=== PATIENT | female | born 1970 | race Caucasian/White ===

== ENCOUNTER 2021-08-05 18:13 | Outpatient (REF) | payer BC, SELFPAY ==
--- NOTE | 2021-08-05 16:45 | PAPFT_PTH ---
PATIENT: Keeley Castro LOC: [facility]#:[id number] AGE/SX: 50/F ROOM: RE08/05/[address]: Evelyn Trent : 1970 BED: DIS: 08/05/2021 SPEC #: [id number] RECD: 08/06/21 13:03 STATUS: ARELY REQ #: [id number] NATHALIE: 08/05/21 16:[address]: Evelyn Trent DEPT: [facility] Cytology RECD BY: Carmita Giatan ENTERED: 08/06/21 13:04 SP TYPE: PAPFT OTHR DR: Renata Moncada V Tissues: 1 - CX/ENDOCX FOR PAP SMEARS Procedures: PAP THIN PREP/UVM Screening HPV DNA PROBE Comments: [id number]
[2021-08-05 21:44] LABS: ALT 24 U/L (14-59); AST 21 U/L (15-37); Albumin 4.1 g/dL (3.4-5.0); Alkaline Phosphatase 47 U/L (46-116); Anion Gap 10.6 mmol/L (3-11); BUN 17 mg/dL (7-18); Bilirubin, Total 0.6 mg/dL (0.2-1.0); CO2 25.4 mmol/L (21.0-32.0); Calcium 8.9 mg/dL (8.5-10.1); Calculated LDL 166 mg/dL (<100); Chloride 102 mmol/L (98-107); Cholesterol 243 mg/dL (<200); Estimated GFR 58.22 (mL/min/1.73m2); Glucose 91 mg/dL (74-106); HDL Cholesterol 39 mg/dL (40-60); Potassium 4.1 mmol/L (3.5-5.1); Sodium 138 mmol/L (136-145); Total Protein 7.2 g/dL (6.4-8.2); Triglyceride 191 mg/dL (<150)
== END 2021-08-05 18:14 | disposition home or self-care (01) ==
LOC: NCHCN 18:13
PROVIDERS: PCP Family Medicine; Visit Provider Physician Assistant Medical
DX: Z13.9 Encounter for screening, unspecified (principal); Z12.4 Encounter for screening for malignant neoplasm of cervix; Z11.51 Encounter for screening for human papillomavirus (HPV)
CPT/HCPCS: 80053; 80061; 88142; 87624

== ENCOUNTER 2021-08-11 00:53 | Outpatient (CLI) | payer BC, SELFPAY ==
--- NOTE | 2021-08-11 08:45 | DI.MAMMO_ITS ---
Exam(s) MAMMO SCREENING EXAM: MAMMO SCREENING CLINICAL HISTORY: SCREENING, Z13.9 TECHNIQUE: Bilateral full field digital CC and MLO mammographic images were obtained with 3D tomosyn thesis and utilizing computer aided detection (CAD). COMPARISON: Available for comparison. FINDINGS: Masses/Architectural Distortion: None seen. Microcalcifications: No suspicious pleomorphic-type are seen. Skin Thickening/Nipple Retraction: None. IMPRESSION: 1. No significant interval change with no specific features of malignancy noted. 2. Unless there is more urgent need, screening mammography is recommended, as per [employer] guidelines. BI-RADS Category 1 - Negative Breast Density - Category C - Heterogeneously dense Breast density category C or D implies that the patient has dense breast tissue. Dense breast tissue is very common and is not abnormal but dense breast tissue can make it harder to find cancer on a ma mmogram. Also, dense breast tissue may increase their breast cancer risk. This information about the result of the mammogram report was provided to the patient to raise their awareness. Use this report when you speak with the patient about their risks for breast cancer, which includes their family hist ory. At that time, you may recommend for more screening tests (Ultrasound or MRI) as they might be us eful based on their risk. A negative radiographic report should not delay biopsy if a dominant or clinically suspicious mass is present. Up to ten percent of cancers are not identified on mammography. A negative report may reinforce clinical impression. Adenosis and dense breasts may obscure an underlying neoplasm. False positive reports average 6 to 10%. Patient will receive a letter notifying them of these results.
== END 2021-08-11 01:13 ==
PROVIDERS: PCP Family Medicine; Visit Provider Physician Assistant Medical
DX: Z12.31 Encounter for screening mammogram for malignant neoplasm of breast (principal)
CPT/HCPCS: 77063; 77067

== ENCOUNTER 2023-02-25 08:48 | Day surgery (SDC) | payer BC, SELFPAY ==
--- NOTE | 2023-02-25 06:23 | ANES.PREOP_ITS ---
General Info Date of Service Date Performed: 02/25/23 Height: 5 ft Weight: 79.379 kg Body Mass Index (BMI): 34.2 Surgical Procedure: Operation Date: 02/25/23 10:40 Proposed Procedure Side Surgeon p Cataract Extraction with IOL Implant Right Cole Grier MD Meds Allergies and Home Medications Allergies Allergy/AdvReac Type Severity Reaction Status Date / Time bee venom protein (honey bee) Allergy Mild Swelling/Ed Unverified 02/24/23 10:18 abdoulaye Wasp venom Allergy Mild Swelling/Ed Uncoded 02/24/23 10:18 abdoulaye Home Medication Medication Instructions Recorded albuterol sulfate 90 mcg/actuation 2 puff inhalation QID 02/23/23 aerosol inhaler (ProAir HFA) cholecalciferol (vitamin D3) 125 125 mcg PO DAILY 02/23/23 mcg (5,000 unit) tablet (Vitamin D3) diphenhydramine HCl 50 mg tablet 50 mg PO DIRECTED 02/23/23 epinephrine 0.3 mg/0.3 mL 0.3 mg IM DIRECTED 02/23/23 injection, auto-injector (EpiPen) solomon root 325 mg-pyridoxine HCl 1 cap PO DAILY 02/23/23 (vitamin B6) 25 mg capsule ibuprofen 800 mg tablet 800 mg PO TID PRN 02/23/23 magnesium citrate 100 mg tablet 100 mg PO DAILY 02/23/23 meclizine 12.5 mg tablet 12.5 mg PO TID 02/23/23 melatonin 10 mg tablet 10 mg PO DAILY 02/23/23 omega-3 fatty acids-fish oil 340 1 cap PO DAILY 02/23/23 mg-1,000 mg capsule trazodone 50 mg tablet 50 mg PO QHS PRN 02/23/23 tumeric 100 mg-solomon 150 mg-olive 1 cap PO DAILY 02/23/23 50 mg-oreg 150 mg-caprylate capsule varenicline 1 mg tablet 1 mg PO BID 02/23/23 fluticasone propionate 50 2 spray intranasal DIRECTED 02/24/23 mcg/actuation nasal spray,suspension Current Visit Medications: Current Medications Generic Name Dose Route Start Last Admin Trade Name Freq PRN Reason Stop Dose Admin Acetaminophen 1,000 mg 02/25/23 06:00 Acetaminophen 500 Mg Tab PO 03/27/23 05:59 Q4H PRN PRN Balanced Salt Solution 500 ml 02/25/23 06:00 Balanced Salt Soln.-Plus 500 Ml Bag OP 03/27/23 05:59 DIRECTED [facility] Miscellaneous Medication 0 ml 02/25/23 06:00 Prednisolone 1%, Moxifloxacin 0.5%, Nepafenac 0.1% 5ml Btl OD 03/27/23 05:59 DIRECTED [facility] Miscellaneous Medication 0 ml 02/25/23 06:00 Tropicam./Phenyleph. 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 Surgical History Surgical History Hx of tubal ligation Tobacco Smoking/Tobacco Use Status: Current every day Tobacco Type: cigarettes Alcohol Alcohol Intake: current Alcohol intake frequency: 0-2 drinks per day Substance Use Substance use: Never Substance use type: does not use Vital Signs and Lab Results Vital Signs Comment Vital Signs Comment:: Temp Pulse Resp BP Pulse Ox 36.3 C L 74 18 152/90 H 99 02/25/23 09:09 02/25/23 09:09 02/25/23 09:09 02/25/23 09:09 02/25/23 09:09 Lab Results Blood Type / Crossmatch: No Data to Display Complete Blood Count: No Data to Display Complete Metabolic Panel: No Data to Display Liver Function Panel: No Data to Display Coagulation Panel: No Data to Display Cardiac Panel: No Data to Display Arterial Blood Gas: No Data to Display Venous Blood Gas: No Data to Display Pancreas Panel: No Data to Display Thyroid Panel: No Data to Display Infectious Disease: No Data to Display Blood Cultures: No Data to Display Toxicology Panel: No Data to Display Panel: No Data to Display Anesthesia Assessment and Plan Anesthesia History Personal History: No History of Anesthesia Complications Family History: No Family History of Anesthesia Complications Exercise Tolerance Exercise Tolerance: Metabolic Equivalents>4 Cardiac & Pulmonary Exam Cardiac Exam: Normal S1/S2 Heart Sounds Pulmonary Exam: Clear Bilateral Breath Sounds Implantable Cardiac Device Does patient have a Pacemaker or an ICD?: No Airway Exam Known Difficult Airway: No Mallampati Class: 2 Mouth Opening: Normal (> 3cm) Thyromental Distance: Greater than 3 cm Neck Range of Motion: Full ROM Neck Circumference: Normal Teeth Condition: Normal Dentition ASA Classification ASA Score: ASA 2 Emergency Case?: No NPO Status NPO Status: NPO Clears >2 hours, Solids >8 hours Status Status: Not Relevant due to Medical History Anesthesia Plan Resuscitation Status: Full Code Anesthesia Technique: MAC Anesthesia Airway Planned: Natural Airway Monitors Used: Standard Monitors Preoperative Comments:: 52 yo female for cataract removal. discussed MKO vs no MKO. She would like no MKO today, and understands we can start an IV and give sedation during the procedure if needed. Sig PMHx: peripheral neuropathy (ulnar), smoker, occ EtOH.
[2023-02-25 09:09] VITALS: BP 152/90; PULSE 74; RESP 18; TEMP 36.3; O2SAT 99
[2023-02-25 09:21] VITALS: BMI 34.2
[2023-02-25] MEDS: Tropicam./Phenyleph. (1/2.5%) 5 ML BTL OD ×3 (09:21→09:32)
[2023-02-25] MEDS: Povidone-Iodine Ophth 30 ML BTL (10:03)
[2023-02-25] MEDS: Tetracaine 0.5% 4 ML BTL OD (10:03)
[2023-02-25] MEDS: Balanced Salt Soln.-PLUS 500 ML BAG OP (10:08)
[2023-02-25] MEDS: Duovisc Viscoelastic System EACH 1 EACH (10:09)
[2023-02-25] MEDS: Lidocaine 1% Pres-Free 5 ML VIAL (10:10)
[2023-02-25] MEDS: Phenylephrine/Lidocaine (15/10) MG/ML 1 ML VIAL (10:10)
[2023-02-25] MEDS: Trypan Blue 0.06% 0.5 ML SYR (10:10)
[2023-02-25 10:31] VITALS: BP 161/80; PULSE 69; RESP 18; TEMP 36.6; O2SAT 99
--- NOTE | 2023-02-25 10:32 | PDOC.DSDIS_ITS ---
Date of service: 02/25/23 Time of Service: 10:32 Discharge Plan Disposition Patient Disposition: Home Discharge Details Attending Provider: Cole Grier Primary Care Provider: Renata Moncada V Home Meds and New Rx's Prescriptions: No Action trazodone 50 mg tablet 50 mg PO QHS PRN Patient Comments: TAKE ONE TABLET BY MOUTH AT BEDTIME NEEDED meclizine 12.5 mg Tablet 12.5 mg PO TID varenicline 1 mg tablet 1 mg PO BID Patient Comments: TAKE ONE TABLET BY MOUTH TWICE A DAY diphenhydramine HCl 50 mg Tablet 50 mg PO DIRECTED ibuprofen 800 mg Tablet 800 mg PO TID PRN epinephrine [EpiPen] 0.3 mg/0.3 mL Auto-Injector 0.3 mg IM DIRECTED albuterol sulfate [ProAir HFA] 90 mcg/actuation Hfa Aerosol Inhaler 2 puff INHALATION QID Fish Oil 340-1,000 mg Capsule 1 cap PO DAILY cholecalciferol (vitamin D3) [Vitamin D3] 125 mcg (5,000 unit) Tablet 125 mcg PO DAILY melatonin 10 mg Tablet 10 mg PO DAILY magnesium citrate 100 mg Tablet 100 mg PO DAILY solomon root-pyridoxine HCl(B6) 325-25 mg Capsule 1 cap PO DAILY hbriydv-dhfs-iligt-oreg-capryl 100 mg-150 mg- 50 mg-150 mg Capsule 1 cap PO DAILY fluticasone propionate [Flonase] 50 mcg/actuation [place],Suspension 2 spray INTRANASAL DIRECTED Discharge Instructions Stand Alone Forms: Post-op Topical Cataract, Fadia Youngblood (DSU) Discharge Orders Discharge Orders: Discharge Order (Routine); Ordered 02/25/23 Ordered By: Cole Grier DS: Diagnosis Discharge Diagnosis (1) Posterior subcapsular age-related cataract, right eye: Status: Resolved
--- NOTE | 2023-02-25 10:33 | ROE_ITS ---
Date of service: 02/25/23 Time of Service: 10:33 Operative Note Operative Note DATE OF PROCEDURE: 02/25/23 PRE-OP DIAGNOSIS: Posterior subcapsular cataract, right eye POST-OP DIAGNOSIS: same PROCEDURE: Cataract extraction using phacoemulsification with intraocular lens implant, right eye SURGEON: Cole Grier ANESTHESIA TYPE: Local By Surgeon and MAC Refer to Anesthesia Record ESTIMATED BLOOD LOSS: 0 PATHOLOGY: none sent COMPLICATIONS: None Patient was transported to: same day Patient's condition: stable Implants: Carlos [employer] Carlos Tecnis Eyhance [id number] Indications: Progressive visual loss due to cataract, right eye Procedure Description: CATARACT SURGERY OPERATIVE REPORT PREOPERATIVE DIAGNOSIS: 1. Posterior subcapsular cataract, right eye POSTOPERATIVE DIAGNOSIS: Same OPERATION: 1. Cataract extraction using phacoemulsification with posterior chamber intraocular lens implant, right eye. IOL: IOL Sales Program Manager/Model: Carlos [employer] Carlos Tecnis Eyhance [id number] IOL Power: + 16.5 diopters IOL Serial Number: [id number] Optic Diameter: 6.0mm Haptic/Overall Diameter: 13.0mm PHACO INFO: Preston [email or web address] Vision System with OZil and Active Fluidics Cumulative Dispersed Energy (CDE): 6.63 seconds SURGEON: Cole Grier MD, ESDRAS ANESTHESIA: Monitored Anesthesia Care (MAC), with local sub-tenon's anesthetic infiltration COMPLICATIONS: None SPECIMENS: None INDICATIONS FOR PROCEDURE: The patient is a 52-year-old lady with history of diminished visual acuity in her right eye secondary to the development of dense posterior subcapsular cataract. She is significantly symptomatic that she desires cataract surgery and attempt to improve and maximize her vision. The option of cataract surgery was offered to the patient and she wished to proceed. See office notes for detailed information. PROCEDURE: The correct surgical eye was identified and marked as the right eye and the pupil was dilated in the preoperative area using mydriatics and cycloplegics. The dilated pupil size was 8.0 mm. The patient elected to proceed without oral sedation. The patient was brought to the operating room where cardiopulmonary monitoring was instituted and surgical time-out was performed, confirming the correct operative eye and IOL power. Topical anesthesia was administered and ophthalmic povidone-iodine 5% was instilled into the conjunctival fornices. The sweetie-ocular area was prepped with Betadine 10% solution and draped in the usual sterile fashion for intraocular surgery, including an aperture drape. A Tegaderm transparent film dressing was cut in half and used to cover the lashes and lid margins. Care was taken to sequester the lashes and lid margins under the Tegaderm dressing. A lid speculum was placed between the lids of the operative eye and the Preston LuxOR Revalia operating microscope was maneuvered into position. Miguel scissors were then used to make a conjunctival buttonhole approximately 6mm posterior to the limbus in the inferonasal quadrant. Blunt dissection was carried out to expose bare sclera, and a blunt-tipped sub-tenon?s anesthesia cannula was introduced and passed posteriorly along the globe where non- preserved plain lidocaine was injected into posterior sub-Tenon?s space. A sideport knife was used to make a paracentesis port. VisionBlue was injected into the anterior chamber and allowed to sit for 20 seconds. Intraocular phenylephrine/lidocaine was injected into the anterior chamber. The anterior chamber was filled with viscoelastic. A keratome knife was used to construct a 2-plane clear corneal tunnel extending 2.0mm into clear cornea. A flap was raised on the anterior capsule and capsulorhexis forceps were used to complete a continuous curvilinear capsulorhexis of 5.5 mm. Balanced salt solution was then used to perform cortical cleaving hydrod issection and nuclear hydrodelineation until the lens could be freely rotated within the capsular bag. The lens nucleus was then disassembled and removed within the capsular bag and iris plane using phacoemulsification. Residual cortical material was removed using the I/A handpiece. The posterior capsule was carefully polished to remove as much residual lens epithelial cells as safely possible. There was some residual posterior subcapsular plaque in the subincisional area which could not be safely removed, despite extensive polishing through the main incision and sideport. The capsular bag was then inflated and the anterior chamber deepened with cohesive viscoelastic. The lens implant described above was inserted into the capsular bag using the Carlos and Kim Simplicity pre-loaded injector. A Kuglen hook was used to dial the IOL into position. Residual viscoelastic was then removed first from posterior to the IOL, then from the anterior chamber using the I/A handpiece. The lens implant was noted to center nicely within the capsular bag. The incisions were stromally hydrated, and the anterior chamber was reformed using BSS. Then 0.5cc of moxifloxacin 1.0mg/ml were injected into the capsular bag and anterior chamber. The incisions were checked with a Weck spear and found to be secure. Several drops of ophthalmic povidone-iodine 5% were then applied to the eye followed by two drops of Imprimis combination prednisolone/moxifloxacin/nepafenac solution. The drapes were removed and a clear plastic protective eye shield was placed over the eye. The patient was then returned to Same Day Surgery in stable condition.
--- NOTE | 2023-02-25 10:58 | W.ANESPOSTOP ---
Postoperative Evaluation Date, Time and Location Date Performed: 02/25/23 Time Performed: 10:31 Patient Location: Day Surgery Unit Vital Signs Most Recent Imported Vital Signs: Most Recent Vital Signs Temp Pulse Resp BP Pulse Ox 36.6 C 69 18 161/80 H 99 02/25/23 10:31 02/25/23 10:31 02/25/23 10:31 02/25/23 10:31 02/25/23 10:31 Pain Score Most Recent Pain Score: Most Recent Pain Score Pain Level 0 02/25/23 10:31 Assessment Mental Status: Awake (Alert & Oriented to Patient Baseline) Airway and Respiratory Function: Patent airway with normal (patient baseline) respiratory exam Cardiovascular Function: Hemodynamically Stable Hydration Status: Adequately Hydrated Nausea & Vomiting: No Nausea or Vomiting Pain: Pt. Denies Any Pain Peripheral Nerve Block: Patient did not receive a nerve block
== END 2023-02-25 10:46 | disposition home or self-care (01) ==
LOC: SUR 08:48
PROVIDERS: PCP Family Medicine; Visit Provider Ophthalmology
PROC: (CPT 66984; principal; 2023-02-25 10:30)
DX: H25.041 Posterior subcapsular polar age-related cataract, right eye (principal); F17.210 Nicotine dependence, cigarettes, uncomplicated
CPT/HCPCS: 66984; V2632

== ENCOUNTER 2025-02-25 13:15 | Outpatient (CLI) | payer BC, SELFPAY ==
--- NOTE | 2025-02-25 15:01 | DI.RAD_ITS ---
Exam(s) XR KNEE RT 3V AP,LAT,NATALIE EXAM: XR KNEE RT 3V AP,LAT,NATALIE CLINICAL HISTORY: ACUTE PAIN RT KNEE, M25.561. TECHNIQUE: 2D digital imaging was performed of the right knee. Three views obtained. AP, lateral and PA tunnel views were obtained. COMPARISON: No exams were available for comparison FINDINGS: BONES: No acute fracture is present. No bony destructive lesion is seen. JOINTS: The knee is normally aligned. No joint effusion is seen. There are mild degenerative changes seen at the patellofemoral joint. There is mild narrowing and spurring in the lateral femoral tibial joint. SOFT TISSUE: Normal. IMPRESSION: 1. There is no acute abnormality. 2. Mild degenerative changes of the right knee. DATA REPOSITORY: RADIATION DOSE DELIVERED:
== END 2025-02-25 13:35 ==
LOC: DI 04-12 13:15
PROVIDERS: PCP Student in an Organized Health Care Education/Training Program; Visit Provider Family Medicine
DX: M17.11 Unilateral primary osteoarthritis, right knee (principal)
CPT/HCPCS: 73562